=== PATIENT | female | born 1945 | race Caucasian/White ===

== ENCOUNTER → 2016-07-08 | Outpatient (CLI) | payer MEDICARE, OTHER ==
[~2016-07-08] MED LIST: COLACE100 MG PO; IBUPROFEN800 MG PO; MIRALAX17 GM PO; OMEPRAZOLE40 MG PO; OSCAL500 MG PO; PERCOCET 7.5-31 EACH PO; VALIUM5 MG PO; VITAMIN D-32000 UNI1 PO; XARELTO10 MG PO
== END | disposition disaster alternative care site (69) ==
LOC: GBCOE 12:15
DX: Z12.31 Encounter for screening mammogram for malignant neoplasm of breast (principal)
CPT/HCPCS: G0202

== ENCOUNTER → 2016-07-11 | Outpatient (CLI) | payer MEDICARE, OTHER ==
--- NOTE | ~2016-07-11 | PUL ---
PATIENT'S NAME: XIN LOCKETT [facility] AGE: 70 Y [address] ROOM: [place] [address] LOCATION: [facility] ADMIT DATE: 07/11/2016 Pulmonary DISCHARGE DATE: FAMILY PHYSICIAN: Shanon Fink ASSOCIATE ENGINEER ATTENDING PHYSICIAN: Shanon Fink NAME OF PROCEDURE: Sleep study DATE OF PROCEDURE: 07/11/16 TECH: VIVIAN Callahan TEST #: [facility] [place] [id number] MEDICAL HISTORY: Patient is a 70-year-old woman with sleep related hypoxemia, snoring, and sleepiness. SLEEP STAGE SUMMARY: The patient was studied for 395 minutes of which she slept 260 minutes. She fell asleep in 27 minutes and slept for 66% of the night. Sleep architecture revealed a decline in slow wave and REM sleep. RESPIRATORY SUMMARY: Oxygen saturations ranged from 82-94% and were below 88% for 27 minutes. There were 8 apneas and 19 hypopneas for an apnea/hypopnea index mildly elevated at 6.2 events per hour. EKG SUMMARY: Average heart rate 82 beats per minute. No dysrhythmias were noted. LEG MOVEMENT SUMMARY: No clinically important periodic limb movements were noted. SUMMARY: Very mild obstructive sleep apnea. Apnea/hypopnea index is 6.2 events per hour. PLAN: Patient will receive results from the ordering provider. MD BHAVANI VALENTIN/ /[id number] dtt: 08/02/16 1017 , Yobani James dtd: 07/16/16 1253
== END | disposition disaster alternative care site (69) ==
LOC: GSLP 20:36
DX: G47.34 Idiopathic sleep related nonobstructive alveolar hypoventilation (principal); G47.33 Obstructive sleep apnea (adult) (pediatric)